=== PATIENT | female | born 2000 | race American Indian/Alaskan Native ===

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

== ENCOUNTER 2021-02-16 17:28 | Emergency (ER) | payer MEDICAID ==
[2021-02-16 23:10] VITALS: BP 104/83
== END 2021-02-18 05:00 | disposition left against medical advice (07) ==
LOC: ED 17:28
DX: Z04.1 Encounter for examination and observation following transport accident (principal); Z53.21 Procedure and treatment not carried out due to patient leaving prior to being seen by health care provider; V87.7XXA Person injured in collision between other specified motor vehicles (traffic), initial encounter; Y93.89 Activity, other specified; Y92.488 Other paved roadways as the place of occurrence of the external cause; Y99.8 Other external cause status